=== PATIENT | female | born 1990 | race Caucasian/White ===

== ENCOUNTER 2017-06-27 09:20 | Emergency (ER) | payer MEDICAID ==
[2017-06-27] MEDS ORDERED: XYLOCAINE 2% INFILTRATI ONE (14:05)
[2017-06-27] MEDS ORDERED: MOTRIN PO ONE (14:25)
--- NOTE | 2017-06-27 15:00 | Emergency Department Report ---
- General Chief complaint: Skin/Abscess/Foreign Body Stated complaint: BOILS ON ARM PIT Time Seen by Provider: 06/27/17 13:18 Source: patient Mode of arrival: Ambulatory Limitations: No Limitations - History of Present Illness Initial comments: Patient is a 27-year-old female presents due to abscess on her left axilla. Patient states that she has had prior abscesses in her right axilla and has had surgery. Patient denies any history of diabetes. Patient has any fever or chills. MD complaint: abscess/boil Location: LUE (left axilla) Severity: severe Severity scale (0 -10): 10 Quality: constant Consistency: constant Improves with: none Worsens with: palpation, movement Associated symptoms: denies other symptoms Treatments Prior to Arrival: none - Related Data Previous Rx's Medication Instructions Recorded Last Taken Type Acetaminophen/Codeine [Tylenol 1 tab PO Q6H PRN #15 tab 06/27/17 Unknown Rx /Codeine # 3 tab] Clindamycin [Clindamycin CAP] 300 mg PO Q6H #40 capsule 06/27/17 Unknown Rx Ibuprofen [Motrin 800 MG tab] 800 mg PO Q8HR PRN #30 tablet 06/27/17 Unknown Rx Allergies Allergy/AdvReac Type Severity Reaction Status Date / Time Sulfa (Sulfonamide Allergy Severe Shortness Verified 06/27/17 09:29 Antibiotics) of Breath ketorolac tromethamine Allergy Unknown Verified 06/27/17 09:29 [From Toradol] Abscess Boil HPI - HPI Chief Complaint: Skin/Abscess/Foreign Body Stated Complaint: BOILS ON ARM PIT Time Seen by Provider: 06/27/17 13:18 Duration: >1 Week (10 days) Location: Upper Extremity History: Yes Pain, Yes Previous History, No Fever, No Purulent Drainage, No Numbness, No Foreign Body, No Insect Bite HPI: Patient is a 27 y/o female who presents due to abscess in the left axilla x 10 days. Patient denies any fever or chills. Patient denies any nausea, vomiting or diarrhea. Patient denies any history of diabetes, she states that she has had similar episodes in the right axilla and needed surgery. Home Medications: Previous Rx's Medication Instructions Recorded Last Taken Type Acetaminophen/Codeine [Tylenol 1 tab PO Q6H PRN #15 tab 06/27/17 Unknown Rx /Codeine # 3 tab] Clindamycin [Clindamycin CAP] 300 mg PO Q6H #40 capsule 06/27/17 Unknown Rx Ibuprofen [Motrin 800 MG tab] 800 mg PO Q8HR PRN #30 tablet 06/27/17 Unknown Rx Allergies/Adverse Reactions: Allergies Allergy/AdvReac Type Severity Reaction Status Date / Time Sulfa (Sulfonamide Allergy Severe Shortness Verified 06/27/17 09:29 Antibiotics) of Breath ketorolac tromethamine Allergy Unknown Verified 06/27/17 09:29 [From Toradol] ED Review of Systems ROS: Stated complaint: BOILS ON ARM PIT Other details as noted in HPI Comment: All other systems reviewed and negative Constitutional: no symptoms reported. denies: chills, diaphoresis, fever, malaise, weakness Gastrointestinal: denies: abdominal pain, nausea, vomiting, diarrhea Skin: other (abscess in the left axilla) Neurological: denies: headache ED Past Medical Hx - Past Medical History Previous Medical History?: No - Surgical History Past Surgical History?: No - Social History Smoking Status: Never Smoker Substance Use Type: None - Medications Home Medications: Home Medications Medication Instructions Recorded Confirmed Last Taken Type Acetaminophen/Codeine [Tylenol 1 tab PO Q6H PRN #15 tab 06/27/17 Unknown Rx /Codeine # 3 tab] Clindamycin [Clindamycin CAP] 300 mg PO Q6H #40 capsule 06/27/17 Unknown Rx Ibuprofen [Motrin 800 MG tab] 800 mg PO Q8HR PRN #30 tablet 06/27/17 Unknown Rx ED Physical Exam - General Limitations: No Limitations General appearance: alert, in no apparent distress - Head Head exam: Present: atraumatic, normocephalic, normal inspection - Eye Eye exam: Present: normal appearance - Neck Neck exam: Present: normal inspection, full ROM. Absent: tenderness, meningismus - Back Exam Back exam: Present: normal inspection, full ROM. Absent: tenderness - Neurological Exam Neurological exam: Present: alert, altered, normal gait - Skin Skin exam: Present: other (patient had 6 x 5 cm area of fluctuation and induration on the left axilla, with mild erythema, no streaking) ED Course Vital Signs 06/27/17 06/27/17 06/27/17 09:30 15:14 15:16 Temperature 98.7 F Pulse Rate 102 H 80 Respiratory 16 18 18 Rate Blood Pressure 109/64 Blood Pressure 140/90 [Right] O2 Sat by Pulse 99 Oximetry - I & D Left Arm Type of Procedure: Simple Site: left axilla Blade Size: 11 I & D Procedure: betadine prep Progress: the abscess was anesthetized with lidocaine after it was cleaned with betadine. incision was made with an 11 blade. copious amount on purulent fluid was drained. patient refused to have the abscess fully drianed due to pain, the incision was loculated, packing was inserted with pressure dressing. ED Medical Decision Making - Medical Decision Making Patient was in severe pain due to abscess in the left axilla, patient was told that she could be given ibuprofen and Tylenol because she did not have a ride she drove to the ER. Patient became upset when she was told that she needed a ride home if she wanted narcotic for pain in the ER. patient wanted to speak to the configuration management manager. Codie charge nurse came and spoke to patient. patient was given ibuprofen prior to I&D. INCISION AND DRAINAGE WAS PERFORMED WITH DIFFICULTY BECAUSE PATIENT WAS IN SEVERE PAIN. ABSCESS WAS NOT DRAINED FULLY, PACKING WAS INSERTED. PATIENT WAS TOLD TO RETURN IN 2 DAYS FOR PACKING REMOVAL AND TO FOLLOW UP WITH THE PROVIDED GENERAL SURGEON. PATIENT WAS PRESCRIBED CLINDAMYCIN AND TYLENOL WITH CODEINE. - Differential Diagnosis cellulitis, abscess, insect bite Critical care attestation.: If time is entered above; I have spent that time in minutes in the direct care of this critically ill patient, excluding procedure time. ED Disposition Clinical Impression: Abscess Disposition: [id number] TO HOME OR SELFCARE Is pt being admited?: No Does the pt Need Aspirin: No Condition: Good Instructions: Abscess (ED) Additional Instructions: Take clindamycin 300 mg every 6 hours for 10 days. Take Tylenol with codeine one tablet every 6 hours as needed for severe pain. Take ibuprofen 800 mg every 8 hours as needed for moderate pain. Return to the ER in 2 days for packing removal. Apply warm compresses to the left axilla. And change the dressing twice a day, do not pull out the packing. Follow-up with the provided general surgeon for further evaluation of the abscess. Prescriptions: Acetaminophen/Codeine [Tylenol /Codeine # 3 tab] 1 tab PO Q6H PRN #15 tab PRN Reason: Pain Clindamycin [Clindamycin CAP] 300 mg PO Q6H #40 capsule Ibuprofen [Motrin 800 MG tab] 800 mg PO Q8HR PRN #30 tablet PRN Reason: Pain Referrals: PRIMARY CARE, [Primary Care Provider] - 3-5 Days IRINEO GILL MD [Staff Physician] - 3-5 Days Time of Disposition: 15:00
[2017-06-27] MEDS ORDERED: CLEOCIN ONE (15:10)
[2017-06-27] MEDS ORDERED: CLEOCIN PO ONE (15:11)
[2017-06-27 15:17] VITALS: BP 140/90
== END 2017-06-27 15:17 | disposition home or self-care (01) ==
LOC: ED 09:20
DX: L02.412 Cutaneous abscess of left axilla (principal); Z88.2 Allergy status to sulfonamides; Z88.8 Allergy status to other drugs, medicaments and biological substances